=== PATIENT | male | born 1980 | race Hispanic/Latino ===

== ENCOUNTER 2017-09-12 21:30 | Emergency (ER) | payer OTHER ==
[2017-09-12 21:55] VITALS: BP 147/98; PULSE 84; RESP 16; TEMP 97.9; O2SAT 100
--- NOTE | 2017-09-13 00:39 | ED PDOC ---
Upper Extremity Pain/Injury Time Seen by Provider: 09/13/17 00:04 Chief Complaint (Nursing): Upper Extremity Problem/Injury Chief Complaint (Provider): Left arm swelling History Per: Patient History/Exam Limitations: no limitations Onset/Duration Of Symptoms: Days (x1) Current Symptoms Are (Timing): Still Present Additional Complaint(s): 37-year-old male presents to the emergency department for evaluation of elbow pain and swelling, after falling 1 week ago. Reports he fell onto the left elbow while skiing. Patient states initially he iced it and was not having any complaints. This evening he noticed swelling to the left elbow. Patient denies any new trauma, fevers, or redness. PMD: Dr. Venancio Alejandro Past Medical History Reviewed: Historical Data, Nursing Documentation, Vital Signs Vital Signs: Last Vital Signs Temp 97.9 F 09/12/17 21:52 Pulse 84 09/12/17 21:52 Resp 16 09/12/17 21:52 BP 147/98 H 09/12/17 21:52 Pulse Ox 100 09/12/17 21:52 - Medical History PMH: No Chronic Diseases - Surgical History Other surgeries: Eye surgery, shoulder surgery - Family History Family History: States: Unknown Family Hx - Social History Current smoker - smoking cessation education provided: No Alcohol: Social Drugs: Denies - Allergies Allergies/Adverse Reactions: Allergies Allergy/AdvReac Type Severity Reaction Status Date / Time No Known Allergies Allergy Verified 09/12/17 21:52 Review of Systems ROS Statement: Except As Marked, All Systems Reviewed And Found Negative Constitutional: Negative for: Fever Musculoskeletal: Positive for: Other (Left elbow swelling/pain) Skin: Negative for: Other (redness) Physical Exam - Reviewed Nursing Documentation Reviewed: Yes Vital Signs Reviewed: Yes - Physical Exam Appears: Positive for: Well, Non-toxic, No Acute Distress Pulses-Radial (L): 2+ Pulses-Radial (R): 2+ Extremity: Positive for: Normal ROM (with full ROM of left elbow), Capillary Refill (< 2 sec), Swelling (Swelling posteriorly, approximately 4 cm in diameter , just proximal to elbow joint. Quality is consistent with lipoma), Other ( Neurovascularly intact) - ECG O2 Sat by Pulse Oximetry: 100 (RA) Pulse Ox Interpretation: Normal Medical Decision Making Medical Decision Making: Time: 00:17 Initial Impression: Hematoma vs Lipoma vs Bursitis vs Fracture Initial Plan: --Motrin 600mg PO --X-Ray Left Elbow --Pending reevaluation Time: 00:37 X-Ray Left Elbow: FINDINGS: Bones/joints: There is minimal LEFT double soft tissue swelling without evidence of acute fracture or dislocation. No effusion. Soft tissues: See above. IMPRESSION: There is minimal LEFT double soft tissue swelling without evidence of acute fracture or dislocation. Clinical Impression: Bursitis Patient's left elbow wrapped with KOURTNEY wrap. Upon provider evaluation patient is medically stable, and requires no further treatment in the ED at this time. Patient will be discharged home. Counseling was provided and all questions were answered regarding diagnosis and need for follow up with orthopedist, referral provided. There is agreement to discharge plan. Return precautions were discussed in detail. Scribe Attestation: Documented by Sherry Conklin, acting as a scribe for Solomon Tucker MD Provider Scribe Attestation: All medical record entries made by the Scribe were at my direction and personally dictated by me. I have reviewed the chart and agree that the record accurately reflects my personal performance of the history, physical exam, medical decision making, and the department course for this patient. I have also personally directed, reviewed, and agree with the discharge instructions and disposition. Disposition - Clinical Impression Clinical Impression: Bursitis - Patient ED Disposition Is Patient to be Admitted: No Counseled Patient/Family Regarding: Studies Performed, Diagnosis, Need For Followup - Disposition Referrals: Jeffrey Hernandez III, MD [Staff Provider] - Disposition: Routine/Home Disposition Time: 00:40 Condition: STABLE Instructions: Elbow Bursitis (ED) Forms: [employer] (Macanese)
--- NOTE | 2017-09-13 13:42 | RAD ---
PROCEDURE: Radiographs of the left elbow. HISTORY: s/p fall last week, swelling sub-elbow COMPARISON: No prior. FINDINGS: BONES: Normal. No fracture. JOINTS: Normal. No osteoarthritis. SOFT TISSUES: Soft tissue swelling in medially at and adjacent to the olecranon. JOINT EFFUSION: None. OTHER FINDINGS: None IMPRESSION: Soft tissue swelling without acute articular or osseous abnormality.
== END 2017-09-13 01:03 | disposition home or self-care (01) ==
LOC: H.ER 21:30
DX: M70.22 Olecranon bursitis, left elbow (principal)